=== PATIENT | male | born 1930 | race Hispanic/Latino ===

== ENCOUNTER 2017-10-08 09:35 | Observation (INO) | payer MEDICARE ==
[~2017-10-08] VITALS: Ht 175.3 cm; Wt 97.7 kg
[~2017-10-08 09:35] MED LIST: ALLOPURINOL100 MG PO; ASPIR 8181 MG PO; ATENOLOL25 MG PO; ATORVASTATIN CA20 MG PO; AVODART0.5 MG PO; CARDURA2 MG PO; COLCRYS0.6 MG PO; DIOVAN320 MG PO; DOXAZOSIN MESYLA2 MG PO; FLAGYL500 MG PO; FLOMAX0.4 MG PO; HYDROCHLOROTHIA50 MG PO; K DUR10 MEQ PO; LANOXIN250 MCG PO; LASIX20 MG PO; LEVAQUIN500 MG PO; LEVOTHYROXINE88 MCG PO; LISINOPRIL10 MG PO; LISINOPRIL20 MG PO; LISINOPRIL30 MG PO; NORCO 5-325 TA1 EACH PO; OMEPRAZOLE40 MG PO; PRAVACHOL20 MG PO; PRAVASTATIN SOD20 MG PO
[2017-10-08] MEDS ORDERED: ASPIRIN 81 MG CHEW TAB PO ONE ×2 (10:30→13:15)
--- NOTE | 2017-10-08 11:24 | Diagnostic Imaging Report ---
EXAM: XR CHEST 1 VIEW DATE: 10/08/2017 10:21 AM INDICATION: Shortness of breath for 2 months COMPARISON: 07/10/2016 radiograph FINDINGS: Lines and Tubes: None Heart and Mediastinum: Sternotomy wires, enlargement cardiac silhouette, and aortic vascular calcification stable. Lungs and Pleura: Biapical scarring. Curvilinear density right lung base is unchanged in appearance from 07/10/2016 radiograph. Bones and Soft Tissues: No acute findings. IMPRESSION: 1. Stable cardiomegaly with possible left atrial enlargement. 2. Basilar opacities, asymmetric to the right, similar to previous study suggesting atelectasis and/or scarring. 3. Superimposed curvilinear density right lung base is unchanged from 2017. Pneumoperitoneum felt unlikely. Signed by: Dr. Siddhartha Chirinos MD on 10/08/2017 11:20 AM
[2017-10-08 11:25] LABS: BASOPHILS % 0.4 % (0.0-1.0); EOSINOPHILS # (AUTO) 0.1 (0.0-0.4); EOSINOPHILS % 2.1 % (0.0-6.0); HEMATOCRIT 34.7 % (38.2-49.6); HEMOGLOBIN 11.1 g/dL (14.0-18.0); LYMPHOCYTES # (AUTO) 0.9 (1.0-3.2); LYMPHOCYTES % 13.6 % (18.0-39.1); MEAN CORPUSCULAR HEMOGLOBIN 28.3 pg (28-32); MEAN CORPUSCULAR VOLUME 88.5 fL (81-99); MONOCYTES # (AUTO) 0.4 (0.2-0.8); MONOCYTES % 6.4 % (4.4-11.3); NEUTROPHILS # (AUTO) 5.2 (2.1-6.9); NEUTROPHILS % 77.2 % (38.7-80.0); PLATELET COUNT 142 x10e3/uL (140-360); RED BLOOD COUNT 3.92 x10e6/uL (4.3-5.7); RED CELL DISTRIBUTION WIDTH 15.8 % (11.7-14.4)
[2017-10-08 11:50] LABS: ALBUMIN 3.2 g/dL (3.5-5.0); ALBUMIN/GLOBULIN RATIO 0.9 (0.8-2.0); ANION GAP 11.6 mmol/L (8-16); CALCIUM 9.6 mg/dL (8.4-10.2); CREATININE, SERUM 1.46 mg/dL (0.72-1.25); MAGNESIUM 1.9 MG/DL (1.3-2.1); POTASSIUM 4.6 mmol/L (3.5-5.1)
[2017-10-08 11:59] LABS: CREATINE KINASE MB 2.8 ng/mL (0-5.0)
[2017-10-08 12:53] LABS: INR 1.19; PROTHROMBIN TIME 14.2 seconds (11.9-14.5)
[2017-10-08 12:54] LABS: PARTIAL THROMBOPLASTIN TIME 37.9 seconds (23.8-35.5)
--- OUTSIDE RECORDS SUMMARY | 2017-10-08 13:29 | XMS REPORT ---
Author Author [facility] Address Unknown Phone Unavailable Care Team Providers Care Engineering Operator Name Role Phone CORWIN MARIEE Unavailable Unavailable Problems This patient has no known problems. Allergies, Adverse Reactions, Alerts This patient has no known allergies or adverse reactions. Medications This patient has no known medications. 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 Lungs and Pleura: Biapical scarring. Curvilinear density right lung base is unchanged in appearance from 07/10/2016 radiograph. Bones and Soft Tissues: No acute findings. IMPRESSION: 1. Stable cardiomegaly with possible left atrial enlargement. 2. Basilar opacities, asymmetric to the right, similar to previous study suggesting atelectasis and/or scarring. 3. Superimposed curvilinear density right lung base is unchanged from 2017. Pneumoperitoneum felt unlikely. Signed by: Dr. Siddhartha Chirinos MD on 10/08/2017 11:20 AM Dictated By: SIDDHARTHA CHIRINOS MD 1120 Transcribed By: RADHA on 10/08/17 1120 COPY TO: FAISAL ACUNA NP
[2017-10-08] MEDS: ASPIRIN 325 MG TAB EC PO SCH (14:33)
[2017-10-08] MEDS ORDERED: ALLOPURINOL300 MG PO (15:31)
[2017-10-08] MEDS ORDERED: ATORVASTATIN CA20 MG PO (15:32)
[2017-10-08] MEDS ORDERED: BETAXOLOL HCL10 MG PO (15:35)
[2017-10-08] MEDS ORDERED: FUROSEMIDE40 MG PO (15:36)
[2017-10-08] MEDS ORDERED: POTASSIUM CHLO10 ME1 PO (15:36)
[2017-10-08 15:43] VITALS: BP 150/69
[2017-10-08 15:54] VITALS: BP 150/69
[2017-10-08 18:40] LABS: CREATINE KINASE MB 2.9 ng/mL (0-5.0)
[2017-10-08 20:00] VITALS: BP 141/66
[2017-10-08] MEDS ORDERED: ATORVASTATIN 20 MG TAB PO SCH ×2 (21:00)
[2017-10-08] MEDS ORDERED: FUROSEMIDE INJ 10 MG/ML 2 ML VIAL IV SCH (21:05)
[2017-10-09] VITALS (8 sets, daily range): BP systolic 127–174; BP diastolic 59–72
[2017-10-09 03:08] LABS: CREATINE KINASE MB 2.5 ng/mL (0-5.0)
[2017-10-09 06:51] LABS: BASOPHILS % 0.3 % (0.0-1.0); EOSINOPHILS # (AUTO) 0.2 (0.0-0.4); EOSINOPHILS % 2.8 % (0.0-6.0); HEMATOCRIT 34.5 % (38.2-49.6); HEMOGLOBIN 10.8 g/dL (14.0-18.0); LYMPHOCYTES # (AUTO) 0.9 (1.0-3.2); LYMPHOCYTES % 12.5 % (18.0-39.1); MEAN CORPUSCULAR HEMOGLOBIN 27.8 pg (28-32); MEAN CORPUSCULAR HGB CONC 31.3 g/dL (31-35); MEAN CORPUSCULAR VOLUME 88.7 fL (81-99); MONOCYTES # (AUTO) 0.5 (0.2-0.8); MONOCYTES % 6.6 % (4.4-11.3); NEUTROPHILS # (AUTO) 5.8 (2.1-6.9); NEUTROPHILS % 77.5 % (38.7-80.0); PLATELET COUNT 135 x10e3/uL (140-360); RED BLOOD COUNT 3.89 x10e6/uL (4.3-5.7); RED CELL DISTRIBUTION WIDTH 15.8 % (11.7-14.4)
[2017-10-09 07:31] LABS: ALBUMIN 3.1 g/dL (3.5-5.0); ALBUMIN/GLOBULIN RATIO 0.9 (0.8-2.0); ANION GAP 12.8 mmol/L (8-16); CALCIUM 9.8 mg/dL (8.4-10.2); CREATININE, SERUM 1.4 mg/dL (0.72-1.25); MAGNESIUM 1.9 MG/DL (1.3-2.1); POTASSIUM 4.8 mmol/L (3.5-5.1)
[2017-10-09] MEDS: LEVOTHYROXINE SODIUM 88 MCG TAB PO SCH (07:34)
[2017-10-09] MEDS ORDERED: HYDRALAZINE HCL 20 MG/ML VIAL IV PRN (08:45)
[2017-10-09] MEDS: DOXAZOSIN MESYLATE 2 MG TAB PO SCH (08:53)
[2017-10-09] MEDS: FUROSEMIDE INJ 10 MG/ML 2 ML VIAL IV SCH ×2 (08:53→20:50)
[2017-10-09] MEDS: ASPIRIN 325 MG TAB EC PO SCH (08:53)
[2017-10-09] MEDS: DUTASTERIDE 0.5 MG CAP PO SCH (08:53)
[2017-10-09] MEDS: FAMOTIDINE 20 MG TAB PO SCH ×2 (08:53→16:17)
[2017-10-09] MEDS: POTASSIUM CHLORIDE 10 MEQ TABCR PO SCH ×2 (08:53→16:18)
[2017-10-09] MEDS: HEPARIN SOD (PORCINE) 5,000 UNIT/ML VIAL SC SCH ×2 (08:54→20:50)
[2017-10-09] MEDS: ALLOPURINOL 300 MG TAB PO SCH (08:54)
--- NOTE | 2017-10-09 08:58 | Consultation ---
DATE OF CONSULTATION: October 09, 2017 CARDIOLOGY CONSULTATION REASON FOR CONSULTATION: CHF. HPI: This is an 86-year-old male that presented with shortness of breath. According to the patient, for the last 2-3 days, he has been having gradual onset of shortness of breath, orthopnea and PND. He also stated that he had some changes from the PCP's office on his diuretic recently, and he was not getting better that he decided to come into the emergency room for evaluation. He also complained of bilateral lower extremity edema. He has a history of CHF and has been noncompliant with his medications. He also had a history of aortic valve replacement in the past, but he does not remember if it was prosthetic because he is not on any anticoagulation. He denies any chest pain, any dizziness, any diaphoresis, or headache. Troponin was negative. EKG showed normal sinus rhythm with no S/T abnormalities with first-degree AV block. BNP was 2368. Chest x-ray showed stable cardiomegaly with possible left atrial enlargement. PAST MEDICAL HISTORY: Diastolic CHF, hypertension, hypothyroidism, hyperlipidemia, gout, BPH, CKD, PVD, PAD, aortic valve stenosis, anemia, bradycardia, cardiomegaly, and syncope. PAST SURGICAL HISTORY: Aortic valve replacement and hernia repair. FAMILY HISTORY: Positive for hypertension. SOCIAL HISTORY: No smoking. No drinking. He lives at home. MEDICATIONS: See med list. ALLERGIES: HE IS NOT ALLERGIC TO ANY MEDICATIONS. REVIEW OF SYSTEMS: Negative except those mentioned above. Is positive for shortness of breath. PHYSICAL EXAMINATION VITAL SIGNS: Temperature 97, heart rate 78, blood pressure 141/66, respirations 22, oxygen saturation 96% on room air. GENERAL: He is awake, alert and oriented times 3. HEENT: Mucous membrane moist. NECK: Supple. LUNGS: Bilateral decreased breath sounds. CARDIOVASCULAR: S1 and S2 present with some murmur noted. ABDOMEN: Soft. NEUROLOGIC: Intact. EXTREMITIES: With +1 edema. LABS: Sodium 139, potassium 4.8, chloride 110, CO2 21, BUN 32, creatinine 1.4, glucose 120. White blood cells 7.53, hemoglobin 10.8, hematocrit 34.5, and platelets 135,000. PT 14.2, PTT 37.9 and INR 1.19. IMPRESSION 1. Congestive heart failure exacerbation. 2. Hypertension. 3. Hypothyroidism. 4. Aortic valve replacement. 5. History of chronic kidney disease. ASSESSMENT AND PLAN: Will go ahead and get an echocardiogram to reassess the LV and the valve function. Will put him on daily weight check and 1.5 L fluid restriction. Would continue diuretics and beta jorge. Further cardiac workup pending clinical cause. Thank you for this consultation. DICTATED BY SANJAY GUPTA NP Job#: [id number] RI
[2017-10-09] MEDS ORDERED: ATENOLOL 50 MG TAB PO SCH (09:00)
[2017-10-09] MEDS ORDERED: FUROSEMIDE INJ 10 MG/ML 2 ML VIAL IV SCH (09:00)
[2017-10-09] MEDS ORDERED: HOME MEDICATION--PATIENTS OWN PO SCH (09:00)
[2017-10-09] MEDS ORDERED: ALLOPURINOL 100 MG TAB PO SCH (09:00)
[2017-10-09] MEDS ORDERED: NON-FORMULARY MEDICATION (Atenolol 25 MG) PO SCH (09:00)
[2017-10-09] MEDS: LISINOPRIL 2.5 MG TAB PO SCH (09:47)
[2017-10-09] MEDS: ASPIRIN 81 MG CHEW TAB PO SCH (09:47)
[2017-10-09] MEDS: BETAXOLOL 10 MG PO SCH (09:47)
--- NOTE | 2017-10-09 11:45 | Diagnostic Imaging Report ---
PROCEDURE:US RETROPERITONEAL ( KIDNEY ). COMPARISON:None. INDICATIONS:Not provided. TECHNIQUE: Hung-scale and color sonographic images of the bilateral kidneys and bladder where obtained in transverse and longitudinal planes. FINDINGS: RIGHT KIDNEY: 11.9 cm in length, cortical thickness 1 cm Cysts: Round, anechoic structures without internal vascularity, solid component, or septation are found scattered throughout the right kidney. Largest lesion projects exophytically from the upper pole and measures 5.8 x 5.1 x 5.5 cm. Additional lesions measure 1.4, 1.9, and 1.4 cm. Solid masses: None Stones: None Hydronephrosis: None Echogenicity: Increased renal cortical echogenicity. LEFT KIDNEY: 11.5 cm in length, cortical thickness 0.8 cm. Cysts: Round, anechoic lesion without internal vascularity or solid component projects from the upper pole and measures 4 x 3 x 3.6 cm. Solid masses: None Stones: None Hydronephrosis: None Echogenicity: Increased renal cortical echogenicity. Bladder: Unremarkable. Right and left ureteral jets are identified. Prostate: 1.7 x 1 x 1.4 cm. CONCLUSION: Increased renal cortical echogenicity and cortical thinning suggestive of chronic medical renal disease. Simple bilateral renal cysts as described. Dictated by: Robles Meraz M.D. on 10/09/2017 at 11:46 Electronically approved by: Robles Meraz M.D. on 10/09/2017 at 11:46
--- NOTE | 2017-10-09 11:50 | History and Physical ---
PRIMARY CARE PHYSICIAN: Dr. Balderas PHOTO OFFSET PRINTER: Dr. Paulson CHIEF COMPLAINT: Shortness of breath. HISTORY OF PRESENT ILLNESS: This is an 86-year-old man with a history of CHF, who has been having shortness of breath for the past 4 months. Now, his symptoms are worse. He has shortness of breath when lying down. He had a small amount of cough. He also had leg edema bilaterally. He has been on Lasix at home. Denies any issue of kidney disease to his knowledge. Denies any chest pain, fever, chills, or sweats. PAST MEDICAL HISTORY: Congestive heart failure, type unknown, hypothyroidism, hypertension, prostate disease, gout, peripheral arterial disease, chronic kidney disease stage 3, aortic stenosis, status post aortic valve replacement, BPH, bradycardia, cardiomegaly. PAST SURGICAL HISTORY: Mitral valve replacement in June 2013 at [facility], hernia repair in 2012. ALLERGIES: PER ELECTRONIC MEDICAL RECORD. FAMILY HISTORY: Mother had diabetes mellitus. SOCIAL HISTORY: Patient is . No alcohol. He quit cigarettes. MEDICATIONS: Per electronic medical record. REVIEW OF SYSTEMS: Denies any chest pain. PHYSICAL EXAMINATION VITAL SIGNS: Reviewed. GENERAL: A tired-appearing man resting in chair. HEENT: Anicteric. Pupils respond to light. No oral lesions. CARDIOVASCULAR: Normal S1 and S2. LUNGS: He has reduced breath sounds throughout more at the bases. ABDOMEN: Soft and nontender. Mildly distended. EXTREMITIES: He has 1-2+ leg edema bilaterally. SKIN: Dry. PSYCHIATRIC: Flat affect. NEUROLOGICAL: Alert and oriented times 3. Moving all extremities. LABS: Reviewed. MEDICATIONS: Reviewed. ASSESSMENT AND PLAN: An 86-year-old man with: 1. Acute exacerbation of congestive heart failure, type unknown: Unclear when his last echocardiogram was obtained. Cardiology has been consulted. Will follow up recommendations. In the meantime, will continue Lasix 20 mg intravenously q.12 h. Increase to 20 mg intravenously q.12 h. Will monitor strict I's and O's. Will monitor renal function while he is being diuresed. Will obtain 2-D echocardiogram. His brain natriuretic peptide was 2368. 2. Acute kidney injury in the setting of chronic kidney disease, stage 3: Monitor renal function while the patient is being diuresed. Will obtain a renal ultrasound. 3. Hypothyroidism: Check TSH. Continue Synthroid. 4. Obesity: Body mass index 30. Will obtain lipid panel and screen for diabetes. 5. Hypertension: Restart home medications. 6. Normocytic anemia: Will follow. 7. Prophylaxis: Will use heparin and Pepcid. 8. Disposition: Monitor closely. Follow I's and O's. Diurese the patient. Follow cardiology recommendations. Obtain 2-D echocardiogram and renal ultrasound. Job#: [id number] VENANCIO
[2017-10-09] MEDS ORDERED: ATORVASTATIN 40 MG TAB PO SCH (21:00)
[2017-10-10] VITALS (7 sets, daily range): BP systolic 122–190; BP diastolic 49–88
[2017-10-10] MEDS ORDERED: CARVEDILOL12.5 MG PO (06:46)
--- NOTE | 2017-10-10 07:13 | Progress Note ---
DATE: October 10, 2017 TIME: 6:42 a.m. OVERNIGHT: Confused and wandering. REVIEW OF SYSTEMS: Denies any chest pain or shortness of breath. PHYSICAL EXAMINATION VITAL SIGNS: Reviewed. GENERAL: A tired-appearing man resting in chair at nurse's station on room air. CARDIOVASCULAR: Normal S1 and S2. LUNGS: Moderate breath sounds. ABDOMEN: Soft, nontender and nondistended. EXTREMITIES: No edema. SKIN: Dry. PSYCHIATRIC: Flat affect. NEUROLOGY: Confused. LABS: Reviewed. MEDICATIONS: Reviewed. ASSESSMENT: An 86-year-old man with: 1. Acute exacerbation of systolic congestive heart failure: Left ventricular ejection fraction 35% to 40%. 2. Acute kidney injury in the setting of chronic kidney disease, stage 3. 3. Hypothyroidism. 4. Obesity: Body mass index 30. 5. Hypertension. 6. Normocytic anemia. 7. Acute delirium. PLAN 1. Continue diuresis. 2. The patient is currently on room air. 3. Continue to follow I's and O's. 4. Follow up labs this morning. 5. Renal function appearing to be at baseline. 6. Renal ultrasound shows chronic medical renal disease. 7. Continue heparin q.12. for DVT prophylaxis. 8. Continue monitoring renal function. 9. Discharge planning. The patient will need to follow up with his primary care doctor. He needs support at home. Will need home health services. Job#: [id number] VENANCIO
[2017-10-10] MEDS ORDERED: LABETALOL HCL 100 MG TAB PO SCH (09:00)
[2017-10-10] MEDS: POTASSIUM CHLORIDE 10 MEQ TABCR PO SCH ×2 (09:05→17:15)
[2017-10-10] MEDS: FAMOTIDINE 20 MG TAB PO SCH ×2 (09:05→17:15)
[2017-10-10] MEDS: DUTASTERIDE 0.5 MG CAP PO SCH (09:05)
[2017-10-10] MEDS: ASPIRIN 81 MG CHEW TAB PO SCH (09:05)
[2017-10-10] MEDS: BETAXOLOL 10 MG PO SCH (09:05)
[2017-10-10] MEDS: LEVOTHYROXINE SODIUM 88 MCG TAB PO SCH (09:05)
[2017-10-10] MEDS: LISINOPRIL 2.5 MG TAB PO SCH (09:05)
[2017-10-10] MEDS: FUROSEMIDE INJ 10 MG/ML 2 ML VIAL IV SCH (09:05)
[2017-10-10] MEDS: DOXAZOSIN MESYLATE 2 MG TAB PO SCH (09:05)
[2017-10-10] MEDS: ALLOPURINOL 300 MG TAB PO SCH (09:06)
[2017-10-10] MEDS: HEPARIN SOD (PORCINE) 5,000 UNIT/ML VIAL SC SCH (09:22)
[2017-10-10 13:35] LABS: BILIRUBIN,URINE NEGATIVE (NEGATIVE); CLARITY,URINE CLEAR (CLEAR); COLOR,URINE YELLOW (YELLOW); KETONES,URINE NEGATIVE (NEGATIVE); LEUKOCYTE ESTERASE ,URINE NEGATIVE (NEGATIVE); NITRITE,URINE NEGATIVE (NEGATIVE); PROTEIN,URINE DIPSTICK 1+ (NEGATIVE); URINE UROBILINOGEN 0.2 mg/dL (0.2 - 1)
[2017-10-10 13:46] LABS: BACTERIA,URINE FEW /HPF; EPITHELIAL CELLS,URINE RARE /LPF; RBC,URINE 0-5 /HPF (0-5); WBC,URINE (MAN) 0-5 /HPF (0-5)
== END 2017-10-10 18:10 | disposition home or self-care (01) ==
LOC: ER 09:35 → ERHOLD 13:26 → IMCU 13:29
PROVIDERS: ADMIT Internal Medicine; ATTEND Internal Medicine
DX: I13.0 Hypertensive heart and chronic kidney disease with heart failure and stage 1 through stage 4 chronic kidney disease, or unspecified chronic kidney disease (principal); I50.23 Acute on chronic systolic (congestive) heart failure; Z79.01 Long term (current) use of anticoagulants; Z95.2 Presence of prosthetic heart valve; N17.9 Acute kidney failure, unspecified; N18.3 Chronic kidney disease, stage 3 (moderate); E03.9 Hypothyroidism, unspecified; D64.9 Anemia, unspecified; E66.9 Obesity, unspecified; Z68.30 Body mass index [BMI] 30.0-30.9, adult; R41.0 Disorientation, unspecified
CPT/HCPCS: 36415 ×2; 71045; 76770; 80053 ×2; 81001; 82140; 82550 ×2; 82553 ×2; 82948; 83036; 83735 ×2; 83880; 84443; 84484 ×2; 85025 ×2; 85610; 85730; 93005 ×2; 93306; 96372; 96376; 97110; 97116 ×2; 97161; G0378 ×3; G8978; G8979; J0360; J1644 ×2; J1940 ×3

== ENCOUNTER → 2018-11-21 | Day surgery (SDC) | payer MEDICARE ==
[2018-11-15 12:02] LABS: BASOPHILS % 0.4 % (0.0-1.0); EOSINOPHILS # (AUTO) 0.2 (0.0-0.4); EOSINOPHILS % 2.8 % (0.0-6.0); HEMATOCRIT 33.8 % (38.2-49.6); HEMOGLOBIN 10.6 g/dL (14.0-18.0); LYMPHOCYTES # (AUTO) 0.8 (1.0-3.2); LYMPHOCYTES % 14.9 % (18.0-39.1); MEAN CORPUSCULAR HEMOGLOBIN 27.5 pg (28-32); MEAN CORPUSCULAR HGB CONC 31.4 g/dL (31-35); MEAN CORPUSCULAR VOLUME 87.6 fL (81-99); MONOCYTES # (AUTO) 0.4 (0.2-0.8); MONOCYTES % 6.4 % (4.4-11.3); NEUTROPHILS # (AUTO) 4.1 (2.1-6.9); NEUTROPHILS % 75.1 % (38.7-80.0); PLATELET COUNT 126 x10e3/uL (140-360); RED BLOOD COUNT 3.86 x10e6/uL (4.3-5.7); RED CELL DISTRIBUTION WIDTH 17.4 % (11.7-14.4)
[~2018-11-21] MED LIST changes: +ALLOPURINOL300 MG PO; +BETAXOLOL HCL10 MG PO; +CARVEDILOL12.5 MG PO; +FUROSEMIDE40 MG PO; +LIDOCAINE HCL 2% LOCAL INJ 5 ML SDV VIAL INJ ONE; +POTASSIUM CHLO10 ME1 PO; +PROPOFOL IV EMULSION 10 MG/ML 20 ML VIAL ONE
[2018-11-21 13:06] VITALS: BP 130/74
== END | disposition home or self-care (01) ==
LOC: OR 09:51
PROVIDERS: ATTEND Internal Medicine Gastroenterology
DX: K92.1 Melena (principal); K21.9 Gastro-esophageal reflux disease without esophagitis; K29.50 Unspecified chronic gastritis without bleeding; K44.9 Diaphragmatic hernia without obstruction or gangrene; R63.4 Abnormal weight loss; K55.20 Angiodysplasia of colon without hemorrhage; K31.9 Disease of stomach and duodenum, unspecified; D12.0 Benign neoplasm of cecum; D12.3 Benign neoplasm of transverse colon; K63.5 Polyp of colon; K57.30 Diverticulosis of large intestine without perforation or abscess without bleeding; K64.8 Other hemorrhoids; Z01.810 Encounter for preprocedural cardiovascular examination; Z01.812 Encounter for preprocedural laboratory examination; I10 Essential (primary) hypertension; E03.9 Hypothyroidism, unspecified; Z95.2 Presence of prosthetic heart valve; M10.9 Gout, unspecified; Z79.82 Long term (current) use of aspirin
CPT/HCPCS: 36415; 43239; 45380; 45385; 85025; 93005; J2001; J2704

== ENCOUNTER 2019-03-09 10:05 | Emergency (ER) | payer MEDICARE ==
[~2019-03-09] VITALS: Ht 175.3 cm; Wt 97.5 kg
[~2019-03-09 10:05] MED LIST changes: -LIDOCAINE HCL 2% LOCAL INJ 5 ML SDV VIAL INJ ONE; -PROPOFOL IV EMULSION 10 MG/ML 20 ML VIAL ONE
== END 2019-03-09 10:55 | disposition home or self-care (01) ==
LOC: ER 10:05
DX: S39.012A Strain of muscle, fascia and tendon of lower back, initial encounter (principal); G89.29 Other chronic pain; N18.2 Chronic kidney disease, stage 2 (mild)
CPT/HCPCS: 99282

== ENCOUNTER 2020-04-03 15:30 | Inpatient (IN) | payer MEDICARE ==
[~2020-04-03] VITALS: Ht 175.3 cm; Wt 88.5 kg
[~2020-04-03 15:30] MED LIST changes: +ATENOLOL50 MG PO; +PANTOPRAZOLE SO40 MG PO
[2020-04-03] MEDS ORDERED: NITROGLYCERIN 2% OINT 1 GM PKT TOP STA (15:47)
[2020-04-03] MEDS ORDERED: FUROSEMIDE INJ 10 MG/ML 4 ML VIAL IV ONE (16:00)
[2020-04-03 16:23] LABS: BASOPHILS % 0.3 % (0.0-1.0); EOSINOPHILS # (AUTO) 0.2 (0.0-0.4); EOSINOPHILS % 2.2 % (0.0-6.0); HEMATOCRIT 33.8 % (38.2-49.6); HEMOGLOBIN 10.8 g/dL (14.0-18.0); LYMPHOCYTES # (AUTO) 0.8 (1.0-3.2); LYMPHOCYTES % 11.5 % (18.0-39.1); MEAN CORPUSCULAR HEMOGLOBIN 30.3 pg (28-32); MEAN CORPUSCULAR VOLUME 94.7 fL (81-99); MONOCYTES # (AUTO) 0.5 (0.2-0.8); MONOCYTES % 6.6 % (4.4-11.3); NEUTROPHILS # (AUTO) 5.4 (2.1-6.9); NEUTROPHILS % 79.1 % (38.7-80.0); PLATELET COUNT 109 x10e3/uL (140-360); RED BLOOD COUNT 3.57 x10e6/uL (4.3-5.7); RED CELL DISTRIBUTION WIDTH 15.3 % (11.7-14.4)
[2020-04-03 16:27] LABS: INR 1.07; PROTHROMBIN TIME 14.4 seconds (11.9-14.5)
[2020-04-03 16:37] LABS: ALBUMIN 3.5 g/dL (3.5-5.0); ALBUMIN/GLOBULIN RATIO 1.1 (0.8-2.0); ANION GAP 16.4 mmol/L (8-16); CALCIUM 9.6 mg/dL (8.4-10.2); CREATININE, SERUM 1.55 mg/dL (0.72-1.25)
[2020-04-03 16:43] LABS: CREATINE KINASE MB 2.6 ng/mL (0-5.0); POTASSIUM 5.4 mmol/L (3.5-5.1)
[2020-04-03] MEDS: CARVEDILOL 12.5 MG TAB PO SCH ×2 (21:00→21:01)
[2020-04-03 23:00] VITALS: BP 127/67
[2020-04-03 23:43] VITALS: BP 162/61
[2020-04-04] VITALS (9 sets, daily range): BP systolic 131–162; BP diastolic 60–68
[2020-04-04] MEDS ORDERED: PNEUMOCOCCAL VACCINE POLYVALENT 23 MCG/0.5 ML VIAL IM SCH (03:34)
[2020-04-04] MEDS ORDERED: INFLUENZA VIRUS VAC SPLIT INJ 0.5 ML SYR IM SCH (03:34)
[2020-04-04] MEDS ORDERED: BETAXOLOL HCL10 MG PO (04:05)
[2020-04-04] MEDS: CARVEDILOL 12.5 MG TAB PO SCH ×2 (09:36→21:00)
[2020-04-04] MEDS ORDERED: ONDANSETRON HCL INJ 2MG/ML 2ML 2 MG/ML VIAL IV PRN (10:45)
[2020-04-04] MEDS ORDERED: ACETAMINOPHEN 325 MG TAB PO PRN (10:45)
[2020-04-04] MEDS ORDERED: DOCUSATE SODIUM 100 MG CAP PO PRN (10:45)
[2020-04-04 11:42] LABS: CHOL/HDL RATIO 2.7 (3.9-4.7)
[2020-04-04 11:43] LABS: CREATINE KINASE MB 3.2 ng/mL (0-5.0)
[2020-04-04] MEDS: FUROSEMIDE INJ 10 MG/ML 4 ML VIAL IV SCH ×2 (12:13→21:00)
[2020-04-04] MEDS: LEVOTHYROXINE SODIUM 88 MCG TAB PO SCH (12:13)
[2020-04-04] MEDS: POTASSIUM CHLORIDE 10MEQ EA PO SCH (12:14)
[2020-04-04] MEDS: FONDAPARINUX SODIUM 7.5 MG/0.6 ML SYR SQ SCH (14:21)
[2020-04-04] MEDS: FONDAPARINUX SODIUM 2.5 MG/0.5 ML SYR SQ SCH (14:21)
[2020-04-04] MEDS ORDERED: ZOLPIDEM TARTRATE 5 MG TAB PO PRN (21:00)
[2020-04-04] MEDS: ATORVASTATIN 20 MG TAB PO SCH (22:29)
[2020-04-05] VITALS (8 sets, daily range): BP systolic 137–154; BP diastolic 47–81
[2020-04-05] MEDS: LEVOTHYROXINE SODIUM 88 MCG TAB PO SCH (06:00)
[2020-04-05 06:36] LABS: BASOPHILS % 0.5 % (0.0-1.0); EOSINOPHILS # (AUTO) 0.3 (0.0-0.4); EOSINOPHILS % 4.4 % (0.0-6.0); HEMATOCRIT 31.7 % (38.2-49.6); HEMOGLOBIN 9.8 g/dL (14.0-18.0); LYMPHOCYTES # (AUTO) 0.8 (1.0-3.2); LYMPHOCYTES % 13.7 % (18.0-39.1); MEAN CORPUSCULAR HEMOGLOBIN 29.4 pg (28-32); MEAN CORPUSCULAR HGB CONC 30.9 g/dL (31-35); MEAN CORPUSCULAR VOLUME 95.2 fL (81-99); MONOCYTES # (AUTO) 0.5 (0.2-0.8); MONOCYTES % 8.7 % (4.4-11.3); NEUTROPHILS # (AUTO) 4.1 (2.1-6.9); NEUTROPHILS % 72.3 % (38.7-80.0); PLATELET COUNT 116 x10e3/uL (140-360); RED BLOOD COUNT 3.33 x10e6/uL (4.3-5.7); RED CELL DISTRIBUTION WIDTH 15.2 % (11.7-14.4)
[2020-04-05] MEDS: CARVEDILOL 12.5 MG TAB PO SCH ×2 (08:31→20:59)
[2020-04-05] MEDS: POTASSIUM CHLORIDE 10MEQ EA PO SCH ×2 (08:32→16:35)
[2020-04-05] MEDS: FUROSEMIDE INJ 10 MG/ML 4 ML VIAL IV SCH ×2 (08:45→20:59)
[2020-04-05] MEDS: ALLOPURINOL 300 MG TAB PO SCH (08:45)
[2020-04-05] MEDS: FONDAPARINUX SODIUM 7.5 MG/0.6 ML SYR SQ SCH (08:46)
[2020-04-05] MEDS: FONDAPARINUX SODIUM 2.5 MG/0.5 ML SYR SQ SCH (08:46)
[2020-04-05 08:58] LABS: ANION GAP 12.2 mmol/L (8-16); CALCIUM 9.8 mg/dL (8.4-10.2); CREATININE, SERUM 1.44 mg/dL (0.72-1.25); POTASSIUM 4.2 mmol/L (3.5-5.1)
[2020-04-05] MEDS ORDERED: FONDAPARINUX SODIUM 7.5 MG/0.6 ML SYR SQ SCH (09:00)
[2020-04-05] MEDS: ATORVASTATIN 20 MG TAB PO SCH (20:59)
[2020-04-06] VITALS (8 sets, daily range): BP systolic 121–154; BP diastolic 46–81
[2020-04-06] MEDS: LEVOTHYROXINE SODIUM 88 MCG TAB PO SCH (05:31)
[2020-04-06] MEDS: ALLOPURINOL 300 MG TAB PO SCH (08:29)
[2020-04-06] MEDS: FUROSEMIDE INJ 10 MG/ML 4 ML VIAL IV SCH ×2 (08:29→21:14)
[2020-04-06] MEDS: POTASSIUM CHLORIDE 10MEQ EA PO SCH ×2 (08:29→16:14)
[2020-04-06] MEDS: CARVEDILOL 12.5 MG TAB PO SCH ×2 (08:29→21:00)
[2020-04-06] MEDS ORDERED: ONDANSETRON HCL 4 MG ORAL DISINTEGRATING TAB PO PRN (08:45)
[2020-04-06 09:36] LABS: BASOPHILS % 0.5 % (0.0-1.0); EOSINOPHILS # (AUTO) 0.3 (0.0-0.4); EOSINOPHILS % 4.3 % (0.0-6.0); HEMATOCRIT 34.2 % (38.2-49.6); HEMOGLOBIN 10.9 g/dL (14.0-18.0); LYMPHOCYTES # (AUTO) 0.7 (1.0-3.2); LYMPHOCYTES % 11.4 % (18.0-39.1); MEAN CORPUSCULAR HEMOGLOBIN 30.1 pg (28-32); MEAN CORPUSCULAR HGB CONC 31.9 g/dL (31-35); MEAN CORPUSCULAR VOLUME 94.5 fL (81-99); MONOCYTES # (AUTO) 0.4 (0.2-0.8); MONOCYTES % 6.8 % (4.4-11.3); NEUTROPHILS % 76.8 % (38.7-80.0); PLATELET COUNT 118 x10e3/uL (140-360); RED BLOOD COUNT 3.62 x10e6/uL (4.3-5.7); RED CELL DISTRIBUTION WIDTH 15.1 % (11.7-14.4)
[2020-04-06] MEDS: DOCUSATE SODIUM 100 MG CAP PO SCH (16:14)
[2020-04-06] MEDS: SENNOSIDES 8.6 MG TAB PO SCH (16:14)
[2020-04-06] MEDS: ATORVASTATIN 20 MG TAB PO SCH (21:14)
[2020-04-07] VITALS: BP 116/55
[2020-04-07 04:00] VITALS: BP 139/58
[2020-04-07] MEDS: LEVOTHYROXINE SODIUM 88 MCG TAB PO SCH (05:16)
[2020-04-07 08:02] VITALS: BP 142/61
[2020-04-07 08:25] VITALS: BP 142/61
[2020-04-07] MEDS: POTASSIUM CHLORIDE 10MEQ EA PO SCH (09:00)
[2020-04-07] MEDS: SENNOSIDES 8.6 MG TAB PO SCH (09:03)
[2020-04-07] MEDS: ALLOPURINOL 300 MG TAB PO SCH (09:03)
[2020-04-07] MEDS: DOCUSATE SODIUM 100 MG CAP PO SCH (09:03)
[2020-04-07] MEDS: CARVEDILOL 12.5 MG TAB PO SCH (09:16)
[2020-04-07] MEDS: FUROSEMIDE INJ 10 MG/ML 4 ML VIAL IV SCH (09:16)
[2020-04-07] MEDS: CLINDAMYCIN HCL 150 MG CAP PO SCH ×2 (09:24→13:12)
[2020-04-07 09:26] LABS: BASOPHILS % 0.3 % (0.0-1.0); EOSINOPHILS # (AUTO) 0.3 (0.0-0.4); EOSINOPHILS % 4.2 % (0.0-6.0); HEMATOCRIT 33.7 % (38.2-49.6); HEMOGLOBIN 10.7 g/dL (14.0-18.0); LYMPHOCYTES # (AUTO) 0.8 (1.0-3.2); LYMPHOCYTES % 12.2 % (18.0-39.1); MEAN CORPUSCULAR HEMOGLOBIN 29.7 pg (28-32); MEAN CORPUSCULAR HGB CONC 31.8 g/dL (31-35); MEAN CORPUSCULAR VOLUME 93.6 fL (81-99); MONOCYTES # (AUTO) 0.4 (0.2-0.8); NEUTROPHILS # (AUTO) 4.7 (2.1-6.9); PLATELET COUNT 114 x10e3/uL (140-360); RED CELL DISTRIBUTION WIDTH 15.2 % (11.7-14.4)
[2020-04-07 11:38] VITALS: BP 140/58
[2020-04-07] MEDS ORDERED: ATORVASTATIN 40 MG TAB PO SCH (21:00)
== END 2020-04-07 14:14 | disposition home or self-care (01) | DRG 175 ==
LOC: ER 16:56 → ERHOLD 18:58 → MED/SURG 21:55 → OBSVTOIN 04-04 10:43 → MED/SURG2 04-06 11:33
PROVIDERS: ADMIT Internal Medicine; ATTEND Internal Medicine
DX: I26.99 Other pulmonary embolism without acute cor pulmonale (principal); I50.21 Acute systolic (congestive) heart failure; I13.0 Hypertensive heart and chronic kidney disease with heart failure and stage 1 through stage 4 chronic kidney disease, or unspecified chronic kidney disease; D69.6 Thrombocytopenia, unspecified; N18.30 Chronic kidney disease, stage 3 unspecified; E87.5 Hyperkalemia; Z95.2 Presence of prosthetic heart valve; E11.22 Type 2 diabetes mellitus with diabetic chronic kidney disease; Z83.3 Family history of diabetes mellitus; E03.9 Hypothyroidism, unspecified; E66.9 Obesity, unspecified; Z68.30 Body mass index [BMI] 30.0-30.9, adult; D63.8 Anemia in other chronic diseases classified elsewhere; M10.9 Gout, unspecified; E11.51 Type 2 diabetes mellitus with diabetic peripheral angiopathy without gangrene; K05.10 Chronic gingivitis, plaque induced; K06.8 Other specified disorders of gingiva and edentulous alveolar ridge; Z20.828 Contact with and (suspected) exposure to other viral communicable diseases
CPT/HCPCS: 36415; 71045; 76700; 78597; 80048; 80053; 80061; 82550; 82553; 83036; 83735; 83880; 84132; 84484; 85025; 85379; 85610; 93005; 93306; 93970; 97139; 99284; A9540; G0378; J1652; J1940; U0002

== ENCOUNTER 2020-06-26 03:43 | Inpatient (IN) | payer MEDICARE ==
[~2020-06-26] VITALS: Ht 175.3 cm; Wt 88.5 kg
[2020-06-26] MEDS ORDERED: LACTATED RINGER'S 1,000 ML INJ ONE (04:00)
[2020-06-26] MEDS ORDERED: OCTREOTIDE ACETATE 500 MCG in SODIUM CHLORIDE 0.9% 250ML 250 ML SQ STA (04:29)
[2020-06-26] MEDS ORDERED: PANTOPRAZOLE 40 MG 10ML VIAL IV STA (04:29)
[2020-06-26] MEDS ORDERED: SODIUM CHLORIDE 0.9% 250ML 250 ML IV ONE (04:30)
[2020-06-26] MEDS ORDERED: PANTOPRAZOL 40MG/SOD CHL 0.9% 50 ML IV ONE (04:34)
[2020-06-26] MEDS ORDERED: PANTOPRAZOLE 40 MG 10ML VIAL ONE (04:34)
[2020-06-26] MEDS ORDERED: CEFTRIAXONE SOD 1 GM/NS 50 ML 50 ML IV ONE (04:45)
[2020-06-26 04:51] LABS: BASOPHILS % 0.1 % (0.0-1.0); EOSINOPHILS % 0.1 % (0.0-6.0); LYMPHOCYTES # (AUTO) 0.6 (1.0-3.2); LYMPHOCYTES % 4.9 % (18.0-39.1); MEAN CORPUSCULAR HGB CONC 27.8 g/dL (31-35); MEAN CORPUSCULAR VOLUME 100.7 fL (81-99); MONOCYTES # (AUTO) 0.5 (0.2-0.8); MONOCYTES % 3.8 % (4.4-11.3); NEUTROPHILS # (AUTO) 11.7 (2.1-6.9); NEUTROPHILS % 90.4 % (38.7-80.0); PLATELET COUNT 168 x10e3/uL (140-360); RED BLOOD COUNT 1.43 x10e6/uL (4.3-5.7); RED CELL DISTRIBUTION WIDTH 17.6 % (11.7-14.4)
[2020-06-26 04:52] LABS: CLARITY,URINE CLOUDY (CLEAR); COLOR,URINE YELLOW (YELLOW); KETONES,URINE NEGATIVE (NEGATIVE); LEUKOCYTE ESTERASE ,URINE SMALL (NEGATIVE); NITRITE,URINE NEGATIVE (NEGATIVE); PROTEIN,URINE DIPSTICK TRACE (NEGATIVE); URINE UROBILINOGEN 0.2 mg/dL (0.2 - 1)
[2020-06-26 04:53] LABS: HEMATOCRIT 14.4 % (38.2-49.6)
[2020-06-26 04:58] LABS: AMORPHOUS SEDIMENT,URINE MANY (FEW); BACTERIA,URINE MODERATE /HPF; EPITHELIAL CELLS,URINE FEW /LPF
[2020-06-26 05:14] LABS: ALBUMIN 2.7 g/dL (3.5-5.0); ALBUMIN/GLOBULIN RATIO 1.1 (0.8-2.0); ALKALINE PHOSPHATASE 65 IU/L (40-150); ANION GAP 24.7 mmol/L (8-16); BLOOD UREA NITROGEN 117 mg/dL (7-26); BUN/CREATININE RATIO 58 (6-25); CALCIUM 8.6 mg/dL (8.4-10.2); CARBON DIOXIDE 9 mmol/L (22-29); CHLORIDE 112 mmol/L (98-107); CREATININE, SERUM 2.01 mg/dL (0.72-1.25); EST GLOMERULAR FILTRATION RATE 32 ML/MIN (60-); GLUCOSE 270 mg/dL (74-118); POTASSIUM 4.7 mmol/L (3.5-5.1); SODIUM 141 mmol/L (136-145)
[2020-06-26 05:16] LABS: ALANINE AMINOTRANSFERASE < 6 IU/L (0-55)
[2020-06-26] MEDS ORDERED: OCTREOTIDE ACETATE 1 ML ONE (05:28)
[2020-06-26 06:40] LABS: BAND NEUTROPHILS % (MANUAL) 1 %; LYMPHOCYTES % (MANUAL) 5 % (19-48); METAMYELOCYTES % (MANUAL) 1 % (0-0); MONOCYTES % (MANUAL) 2 % (3.4-9.0); NEUTROPHILS % (MANUAL) 91 % (40-74); NUCLEATED RED BLOOD CELLS 3
[2020-06-26 06:41] LABS: ANISOCYTOSIS MODERATE; HYPOCHROMASIA MODERATE
[2020-06-26 06:42] LABS: ACANTHOCYTES FEW; ELLIPTOCYTE, RBC SLIGHT; POIKILOCYTOSIS MODE
[2020-06-26 06:43] LABS: RBC MORPHOLOGY COMMENT ABNORMAL; TARGET CELLS FEW
[2020-06-26 06:44] LABS: MICROCYTOSIS MODERATE; PLATELET ESTIMATE ADEQUATE; PLATELET MORPHOLOGY COMMENT NORMAL
[2020-06-26] MEDS ORDERED: ACETAMINOPHEN 325 MG TAB PO PRN (06:45)
[2020-06-26] MEDS ORDERED: ONDANSETRON HCL INJ 2MG/ML 2ML 2 MG/ML VIAL IV PRN (06:45)
[2020-06-26] MEDS ORDERED: DOCUSATE SODIUM 100 MG CAP PO PRN (06:45)
[2020-06-26] MEDS ORDERED: SODIUM CHLORIDE 0.9% 50ML 0 ML ONE (06:58)
[2020-06-26] MEDS ORDERED: IOPAMIDOL 370 MG/ML 200 ML INFUS..BTL INJ ONE (06:59)
[2020-06-26] MEDS ORDERED: SODIUM CHLORIDE 0.9% 100 ML ONE (07:09)
[2020-06-26 07:13] LABS: CHOL/HDL RATIO 3.7 (3.9-4.7)
[2020-06-26 07:33] LABS: FERRITIN 79.39 ng/mL (21.81-274.66)
[2020-06-26] MEDS ORDERED: SODIUM CHLORIDE 0.9% 250ML 250 ML ONE (07:45)
[2020-06-26] MEDS ORDERED: SODIUM BICARBONATE 8.4% SYRING 50 ML ONE (07:57)
[2020-06-26] MEDS ORDERED: PANTOPRAZOLE 40 MG 10ML VIAL IV SCH (09:00)
[2020-06-26] MEDS ORDERED: AMIODARONE HCL INJ 150MG/3ML ONE (13:46)
[2020-06-26] MEDS ORDERED: MAGNESIUM SULF 1GRAM/DEXTROSE PREMIX BAG 100ML IV ONE (13:46)
[2020-06-26] MEDS ORDERED: CALCIUM CHLORIDE 10% 1.36 MEQ/ML 10ML SYR IV ONE (13:46)
[2020-06-26] MEDS ORDERED: WATER STERILE 10 ML VIAL ONE (13:46)
[2020-06-26] MEDS ORDERED: AMIODARONE HCL 150 MG/100 ML BAG IV ONE (13:46)
[2020-06-26] MEDS ORDERED: VECURONIUM BROMIDE FOR INJ 20 MG VIAL ONE (13:46)
[2020-06-26] MEDS ORDERED: EPINEPHRINE HCL SYRINGE ONE (13:46)
[2020-06-26] MEDS ORDERED: SODIUM BICARBONATE 8.4% INJ 50 ML SYR ONE (13:46)
[2020-06-26] MEDS ORDERED: SUCCINYLCHOLINE CHLORIDE 20 MG/ML 10ML VIAL ONE (13:46)
[2020-06-26] MEDS ORDERED: ETOMIDATE 2 MG/ML 10 ML INJ IV ONE (13:46)
== END 2020-06-26 08:03 | disposition expired | DRG 377 ==
LOC: ER 04:09 → ERHOLD 05:01
PROVIDERS: ADMIT Internal Medicine; ATTEND Internal Medicine
PROC: 0BH17EZ Insertion of Endotracheal Airway into Trachea, Via Natural or Artificial Opening (ICD-10-PCS; principal; 2020-06-26)
PROC: 5A19054 Respiratory Ventilation, Single, Nonmechanical (ICD-10-PCS; 2020-06-26)
PROC: 02HV33Z Insertion of Infusion Device into Superior Vena Cava, Percutaneous Approach (ICD-10-PCS; 2020-06-26)
PROC: 30243N1 Transfusion of Nonautologous Red Blood Cells into Central Vein, Percutaneous Approach (ICD-10-PCS; 2020-06-26)
DX: K92.2 Gastrointestinal hemorrhage, unspecified (principal); I50.23 Acute on chronic systolic (congestive) heart failure; I21.A1 Myocardial infarction type 2; J96.00 Acute respiratory failure, unspecified whether with hypoxia or hypercapnia; I13.0 Hypertensive heart and chronic kidney disease with heart failure and stage 1 through stage 4 chronic kidney disease, or unspecified chronic kidney disease; N39.0 Urinary tract infection, site not specified; E11.22 Type 2 diabetes mellitus with diabetic chronic kidney disease; N18.30 Chronic kidney disease, stage 3 unspecified; Z86.711 Personal history of pulmonary embolism; E66.9 Obesity, unspecified; Z68.28 Body mass index [BMI] 28.0-28.9, adult; I46.8 Cardiac arrest due to other underlying condition; W19.XXXA Unspecified fall, initial encounter; R57.1 Hypovolemic shock; D50.0 Iron deficiency anemia secondary to blood loss (chronic); I49.01 Ventricular fibrillation; I46.9 Cardiac arrest, cause unspecified; Z20.822 Contact with and (suspected) exposure to COVID-19
CPT/HCPCS: 36415; 70450; 71045; 72170; 74174; 80053; 80061; 81001; 82728; 83540; 83605; 83880; 84466; 84484; 85025; 86850; 86900; 86920; 87040; 99285; J0171; J0330; J0696; J2353; J3475; J7050; J7121; P9016; Q9967; U0002